=== PATIENT | female | born 1985 | race African-American/Black ===

== ENCOUNTER 2018-01-13 17:59 | Inpatient (IN) | payer MEDICAID ==
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
[2018-01-13 19:24] LABS: HEMATOCRIT 35.9 % (41.0-60); HEMOGLOBIN 11.3 gm/dL (12-16); MEAN CORPUSCULAR HEMOGLOBIN 21.5 pg (27.0-31.0); MEAN CORPUSCULAR HGB CONC 31.5 pg (28.0-36.0); MEAN PLATELET VOLUME 9.2 fl; PLATELET COUNT 439 Th/cmm (150-400); RED BLOOD COUNT 5.28 Mil/cmm (3.80-5.10); RED CELL DISTRIBUTION WIDTH 19.3 % (11.5-20.0); WHITE BLOOD COUNT 11.9 Th/cmm (4.8-10.8)
[2018-01-13 19:25] LABS: % BASOPHILS 0.1 % (0.0-2.0); % LYMPHOCYTES 22.3 % (20.0-50.0); % MONOCYTES 2.1 % (2.0-10.0); % NEUTROPHILS 74.5 % (40.0-80.0); ALBUMIN 3.9 gm/dL (3.7-5.3); ALKALINE PHOSPHATASE 53 U/L (34-104); ANION GAP 14.8 (7.0-16.0); BILIRUBIN,TOTAL 0.3 mg/dL (0.3-1.0); BUN - UREA NITROGEN 14 mg/dL (7-25); CALCIUM SERUM 9.3 mg/dL (8.6-10.3); CARBON DIOXIDE 23.4 mEq/L (21.0-31.0); CHLORIDE 105 mEq/L (98-107); CREATININE - SERUM 0.8 mg/dL (0.6-1.2); EOSINOPHILE ABSOLUTE 0.1 Th/cmm (0.1-0.4); GFR AFRICAN-AMERICAN > 60.0 ml/min (>90); GFR NON AFRICAN-AMERICAN > 60.0 ml/min; GLUCOSE 83 mg/dL (70-105); LYMPHOCYTE ABSOLUTE 2.7 Th/cmm (1.5-3.0); MAGNESIUM 2.4 mg/dL (1.9-2.7); MONOCYTE ABSOLUTE 0.2 Th/cmm (0.3-1.0); NEUTROPHILE ABSOLUTE 8.9 Th/cmm (1.8-8.0); PHOSPHOROUS 3.1 mg/dL (2.5-5.0); POTASSIUM SERUM 4.2 mEq/L (3.5-5.1); SGOT 28 U/L (13-39); SGPT/ALT 10 U/L (7-52); SODIUM SERUM 139 mEq/L (136-145); TOTAL PROTEIN,SERUM 7.7 gm/dL (6.0-8.3)
[2018-01-13 21:42] LABS: URINE SOURCE CLEAN C
[2018-01-13 21:51] LABS: URINE BILIRUBIN NEGATIVE (NEGATIVE); URINE CLARITY CLEAR (CLEAR); URINE COLOR YELLOW; URINE GLUCOSE (UA) NEGATIVE (NEGATIVE); URINE KETONE NEGATIVE (NEGATIVE)
[2018-01-13 21:52] LABS: URINE BLOOD NEGATIVE (NEGATIVE); URINE LEUKOCYTE ESTERASE MODERATE (NEGATIVE); URINE MICROSCOPIC INDICATED? YES; URINE NITRATE NEGATIVE (NEGATIVE); URINE PROTEIN NEGATIVE (NEGATIVE); URINE UROBILINOGEN 0.2 E.U./dL (0.2 - 1.0)
[2018-01-13 21:53] LABS: URINE BACTERIA FEW /hpf (NONE SEEN); URINE EPITHELIAL CELLS FEW /lpf (FEW); URINE RBC 0-2 /hpf (0-5)
[2018-01-13] MEDS ORDERED: Morphine Sulfate 2 mg/mL 1mL Syr IVP PRN (22:15)
[2018-01-14] MEDS: D5-0.45NS 1,000 ML IV SCH ×3 (01:24→23:19)
[2018-01-14] MEDS: cefTRIAXone 1 GM in Sodium Chloride 0.9% 50 ML IV SCH ×2 (02:40→23:17)
[2018-01-14 06:04] LABS: BASOPHILE ABSOLUTE 0.1 Th/cumm (0-0.2); MONOCYTE ABSOLUTE 0.6 Th/cmm (0.3-1.0); RED BLOOD COUNT 4.79 Mil/cmm (3.80-5.10)
[2018-01-14 06:10] LABS: % BASOPHILS 0.9 % (0.0-2.0); % EOSINOPHILS 2.1 % (0.0-5.0); % LYMPHOCYTES 30.9 % (20.0-50.0); % MONOCYTES 7.4 % (2.0-10.0); % NEUTROPHILS 58.7 % (40.0-80.0); EOSINOPHILE ABSOLUTE 0.2 Th/cmm (0.1-0.4); HEMATOCRIT 31.7 % (41.0-60); HEMOGLOBIN 10.4 gm/dL (12-16); LYMPHOCYTE ABSOLUTE 2.3 Th/cmm (1.5-3.0); MEAN CORPUSCULAR HEMOGLOBIN 21.7 pg (27.0-31.0); MEAN CORPUSCULAR HGB CONC 32.8 pg (28.0-36.0); NEUTROPHILE ABSOLUTE 4.4 Th/cmm (1.8-8.0); PLATELET COUNT 372 Th/cmm (150-400); RED CELL DISTRIBUTION WIDTH 18.7 % (11.5-20.0)
[2018-01-14 06:15] LABS: ANION GAP 12.4 (7.0-16.0); BUN - UREA NITROGEN 13 mg/dL (7-25); CARBON DIOXIDE 23.3 mEq/L (21.0-31.0); CHLORIDE 108 mEq/L (98-107); CHOLESTEROL 210 mg/dL (<200); CREATININE - SERUM 0.7 mg/dL (0.6-1.2); GFR AFRICAN-AMERICAN > 60.0 ml/min (>90); GFR NON AFRICAN-AMERICAN > 60.0 ml/min; GLUCOSE 100 mg/dL (70-105); HDL -HIGH DENSITY LIPOPROTEIN 37 mg/dL (23-92); POTASSIUM SERUM 3.7 mEq/L (3.5-5.1); SODIUM SERUM 140 mEq/L (136-145); TRIGLYCERIDES 103 mg/dL (<150)
[2018-01-14 06:22] LABS: WHITE BLOOD COUNT 7.6 Th/cmm (4.8-10.8)
[2018-01-14 06:23] LABS: MEAN CELL VOLUME 66.3 fl (81-100)
--- NOTE | 2018-01-14 08:30 | Diagnostic Imaging Report ---
CT scan of the brain without intravenous contrast HISTORY: Headache, trauma, prior surgery, neoplasm Total DLP equals 606 CTDI equals 35.0 Axial sections were obtained from the base of skull the vertex. Prior exams are not available for comparison. Extensive surgical changes with craniotomy defects noted about the right frontal, temporal, and parietal regions of the skull. There is generalized enlargement of the ventricular system somewhat more pronounced within the right occipital/temporal area. No acute parenchymal abnormalities. No intracerebral hemorrhage. No mass effect or shift of midline structures. No extra-axial masses or abnormal fluid collections. IMPRESSION: 1. Extensive surgical changes along with generalized dilatation of the ventricular system. Findings should be correlated with patient's history and prior studies if needed.
--- NOTE | 2018-01-14 08:33 | Diagnostic Imaging Report ---
CT scan facial bones HISTORY: Pain, trauma Total DLP equals 532 CTDI equals 20.4 Axial sections were obtained through the facial bones. Additional coronal and sagittal reformatted images are provided. There is retention of normal bony margins about the orbits. No fractures. Surgical changes noted about the right zygomatic arch and right temporal and sphenoid region of the skull. Pterygoid plates are intact. No focal abnormalities involve the mandible. Arthritic changes noted about the temporomandibular joints. IMPRESSION: 1. No acute abnormalities 2. Surgical changes as noted above
[2018-01-14] MEDS ORDERED: Influenza Vaccine (5 yr & older) 0.5 ml Syr IM ONE (10:00)
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
--- NOTE | 2018-01-15 11:40 | Internal Medicine Prog Note ---
Internal Medicine Subjective - Subjective Patient seen and examined:: other (c/o nose pain and loose teeth ) Patient is:: awake Patient Complaints of:: other (nose pain ) Per staff patient has:: no adverse event Internal Medicine Objective - Results Result Diagrams: 01/14/18 05:47 01/14/18 05:47 Recent Labs: Laboratory Last Values WBC 7.6 Th/cmm (4.8-10.8) D 01/14/18 05:47 RBC 4.79 Mil/cmm (3.80-5.10) 01/14/18 05:47 Hgb 10.4 gm/dL (12-16) L 01/14/18 05:47 Hct 31.7 % (41.0-60) L 01/14/18 05:47 MCV 66.3 fl (81-100) L 01/14/18 05:47 MCH 21.7 pg (27.0-31.0) L 01/14/18 05:47 MCHC Differential 32.8 pg (28.0-36.0) 01/14/18 05:47 RDW 18.7 % (11.5-20.0) 01/14/18 05:47 Plt Count 372 Th/cmm (150-400) 01/14/18 05:47 MPV 9.0 fl 01/14/18 05:47 Neutrophils % 58.7 % (40.0-80.0) 01/14/18 05:47 Lymphocytes % 30.9 % (20.0-50.0) 01/14/18 05:47 Monocytes % 7.4 % (2.0-10.0) 01/14/18 05:47 Eosinophils % 2.1 % (0.0-5.0) 01/14/18 05:47 Basophils % 0.9 % (0.0-2.0) 01/14/18 05:47 Sodium 140 mEq/L (136-145) 01/14/18 05:47 Potassium 3.7 mEq/L (3.5-5.1) 01/14/18 05:47 Chloride 108 mEq/L (98-107) H 01/14/18 05:47 Carbon Dioxide 23.3 mEq/L (21.0-31.0) 01/14/18 05:47 Anion Gap 12.4 (7.0-16.0) 01/14/18 05:47 BUN 13 mg/dL (7-25) 01/14/18 05:47 Creatinine 0.7 mg/dL (0.6-1.2) 01/14/18 05:47 Est GFR ( Amer) > 60.0 ml/min (>90) 01/14/18 05:47 Est GFR (Non-Af Amer) > 60.0 ml/min 01/14/18 05:47 BUN/Creatinine Ratio 18.6 01/14/18 05:47 Glucose 100 mg/dL (70-105) 01/14/18 05:47 Calcium 9.0 mg/dL (8.6-10.3) 01/14/18 05:47 Phosphorus 3.1 mg/dL (2.5-5.0) 01/13/18 19:00 Magnesium 2.4 mg/dL (1.9-2.7) 01/13/18 19:00 Total Bilirubin 0.3 mg/dL (0.3-1.0) 01/13/18 19:00 AST 28 U/L (13-39) 01/13/18 19:00 ALT 10 U/L (7-52) 01/13/18 19:00 Alkaline Phosphatase 53 U/L (34-104) 01/13/18 19:00 Total Protein 7.7 gm/dL (6.0-8.3) 01/13/18 19:00 Albumin 3.9 gm/dL (3.7-5.3) 01/13/18 19:00 Globulin 3.8 gm/dL 01/13/18 19:00 Albumin/Globulin Ratio 1.0 (1.0-1.8) 01/13/18 19:00 Triglycerides 103 mg/dL (<150) 01/14/18 05:47 Cholesterol 210 mg/dL (<200) H 01/14/18 05:47 LDL Cholesterol Direct 148 mg/dL (75-193) 01/14/18 05:47 HDL Cholesterol 37 mg/dL (23-92) 01/14/18 05:47 TSH 1.21 uIU/ml (0.34-5.60) 01/14/18 05:47 Urine Source CLEAN C 01/13/18 18:35 Urine Color YELLOW 01/13/18 18:35 Urine Clarity CLEAR (CLEAR) 01/13/18 18:35 Urine pH 6.0 (4.6 - 8.0) 01/13/18 18:35 Ur Specific [place] 1.020 (1.005-1.030) 01/13/18 18:35 Urine Protein NEGATIVE mg/dL (NEGATIVE) 01/13/18 18:35 Urine Glucose (UA) NEGATIVE mg/dL (NEGATIVE) 01/13/18 18:35 Urine Ketones NEGATIVE mg/dL (NEGATIVE) 01/13/18 18:35 Urine Blood NEGATIVE (NEGATIVE) 01/13/18 18:35 Urine Nitrate NEGATIVE (NEGATIVE) 01/13/18 18:35 Urine Bilirubin NEGATIVE (NEGATIVE) 01/13/18 18:35 Urine Urobilinogen 0.2 E.U./dL (0.2 - 1.0) 01/13/18 18:35 Ur Leukocyte Esterase MODERATE (NEGATIVE) H 01/13/18 18:35 Urine RBC 0-2 /hpf (0-5) 01/13/18 18:35 Urine WBC 6-10 /hpf (0-5) H 01/13/18 18:35 Ur Epithelial Cells FEW /lpf (FEW) 01/13/18 18:35 Urine Bacteria FEW /hpf (NONE SEEN) 01/13/18 18:35 POC Ur Test Negative 01/13/18 19:23 - Physical Exam Vitals and I&O: Vital Signs Temp 97.2 F 01/15/18 07:43 Pulse 87 01/15/18 07:43 Resp 18 01/15/18 07:43 BP 129/74 01/15/18 07:43 Pulse Ox 99 01/15/18 07:43 Intake & Output 01/14/18 01/15/18 01/15/18 18:59 06:59 18:59 Intake Total 1560.833 645 Balance 1560.833 645 Weight (lbs) 89.358 kg 92.306 kg Intake: Intake, IV Amount 860.833 285 D5-0.45NS 1,000 ml @ 50 860.833 235 mls/hr IV .Q20H MARIA VICTORIA Rx#: [id number] cefTRIAXone 1 gm In 50 Sodium Chloride 0.9% 50 ml @ 100 mls/hr IV Q24HR MARIA VICTORIA Rx#:[id number] Oral 700 360 Other: # Voids 3 3 # Bowel Movements 1 Weight Source Bedscale Bedscale Active Medications: Current Medications Ceftriaxone Sodium 1 gm/ (Sodium Chloride) 50 mls @ 100 mls/hr IV Q24HR COUNTS INCLUDE 234 BEDS AT THE [facility] Stop: 03/14/18 22:59 Last Infusion: 01/14/18 23:47 Dose: Infused Dextrose/Sodium Chloride (D5-0.45ns) 1,000 mls @ 50 mls/hr IV .Q20H MARIA VICTORIA Stop: 03/14/18 22:14 Last Admin: 01/14/18 23:19 Dose: 50 mls/hr Levetiracetam (Keppra) 250 mg PO BID MARIA VICTORIA Stop: 03/16/18 08:59 Last Admin: 01/15/18 09:18 Dose: 250 mg Morphine Sulfate (Morphine) 1 mg IVP Q4HR PRN PRN Reason: MODERATE PAIN Stop: 03/14/18 22:14 Ondansetron HCl (Zofran) 4 mg IV Q6HR PRN PRN Reason: Nausea / Vomiting Stop: 03/14/18 22:15 Risperidone (Risperdal) 2 mg PO DAILY COUNTS INCLUDE 234 BEDS AT THE [facility]; Protocol Stop: 03/16/18 08:59 Valproate Sodium (Depakene) 250 mg PO BID COUNTS INCLUDE 234 BEDS AT THE [facility]; Protocol Stop: 03/16/18 08:59 Last Admin: 01/15/18 09:19 Dose: 250 mg General: alert HEENT: NC/AT Neck: Supple Lungs: CTAB Cardiovascular: Normal S1, Normal S2 Abdomen: soft, non-tender Extremities: clear Neurological: no change Internal Medicine Assmt/Plan - Assessment Assessment: facial cellultiis psychosis h/o craniotomy x 2 for brain tumor - Plan Plan: as per order sheet
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
[2018-01-15] MEDS: cefTRIAXone 1 GM in Sodium Chloride 0.9% 50 ML IV SCH (23:08)
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
[2018-01-16] MEDS: D5-0.45NS 1,000 ML IV SCH (05:01)
--- NOTE | 2018-01-16 11:42 | Internal Medicine Prog Note ---
Internal Medicine Subjective - Subjective Patient seen and examined:: chart reviewed Patient is:: awake Patient Complaints of:: other (some nose pain , in no distress ) Per staff patient has:: no adverse event Internal Medicine Objective - Results Result Diagrams: 01/14/18 05:47 01/14/18 05:47 Recent Labs: Laboratory Last Values WBC 7.6 Th/cmm (4.8-10.8) D 01/14/18 05:47 RBC 4.79 Mil/cmm (3.80-5.10) 01/14/18 05:47 Hgb 10.4 gm/dL (12-16) L 01/14/18 05:47 Hct 31.7 % (41.0-60) L 01/14/18 05:47 MCV 66.3 fl (81-100) L 01/14/18 05:47 MCH 21.7 pg (27.0-31.0) L 01/14/18 05:47 MCHC Differential 32.8 pg (28.0-36.0) 01/14/18 05:47 RDW 18.7 % (11.5-20.0) 01/14/18 05:47 Plt Count 372 Th/cmm (150-400) 01/14/18 05:47 MPV 9.0 fl 01/14/18 05:47 Neutrophils % 58.7 % (40.0-80.0) 01/14/18 05:47 Lymphocytes % 30.9 % (20.0-50.0) 01/14/18 05:47 Monocytes % 7.4 % (2.0-10.0) 01/14/18 05:47 Eosinophils % 2.1 % (0.0-5.0) 01/14/18 05:47 Basophils % 0.9 % (0.0-2.0) 01/14/18 05:47 Sodium 140 mEq/L (136-145) 01/14/18 05:47 Potassium 3.7 mEq/L (3.5-5.1) 01/14/18 05:47 Chloride 108 mEq/L (98-107) H 01/14/18 05:47 Carbon Dioxide 23.3 mEq/L (21.0-31.0) 01/14/18 05:47 Anion Gap 12.4 (7.0-16.0) 01/14/18 05:47 BUN 13 mg/dL (7-25) 01/14/18 05:47 Creatinine 0.7 mg/dL (0.6-1.2) 01/14/18 05:47 Est GFR ( Amer) > 60.0 ml/min (>90) 01/14/18 05:47 Est GFR (Non-Af Amer) > 60.0 ml/min 01/14/18 05:47 BUN/Creatinine Ratio 18.6 01/14/18 05:47 Glucose 100 mg/dL (70-105) 01/14/18 05:47 Calcium 9.0 mg/dL (8.6-10.3) 01/14/18 05:47 Phosphorus 3.1 mg/dL (2.5-5.0) 01/13/18 19:00 Magnesium 2.4 mg/dL (1.9-2.7) 01/13/18 19:00 Total Bilirubin 0.3 mg/dL (0.3-1.0) 01/13/18 19:00 AST 28 U/L (13-39) 01/13/18 19:00 ALT 10 U/L (7-52) 01/13/18 19:00 Alkaline Phosphatase 53 U/L (34-104) 01/13/18 19:00 Total Protein 7.7 gm/dL (6.0-8.3) 01/13/18 19:00 Albumin 3.9 gm/dL (3.7-5.3) 01/13/18 19:00 Globulin 3.8 gm/dL 01/13/18 19:00 Albumin/Globulin Ratio 1.0 (1.0-1.8) 01/13/18 19:00 Triglycerides 103 mg/dL (<150) 01/14/18 05:47 Cholesterol 210 mg/dL (<200) H 01/14/18 05:47 LDL Cholesterol Direct 148 mg/dL (75-193) 01/14/18 05:47 HDL Cholesterol 37 mg/dL (23-92) 01/14/18 05:47 TSH 1.21 uIU/ml (0.34-5.60) 01/14/18 05:47 Urine Source CLEAN C 01/13/18 18:35 Urine Color YELLOW 01/13/18 18:35 Urine Clarity CLEAR (CLEAR) 01/13/18 18:35 Urine pH 6.0 (4.6 - 8.0) 01/13/18 18:35 Ur Specific [place] 1.020 (1.005-1.030) 01/13/18 18:35 Urine Protein NEGATIVE mg/dL (NEGATIVE) 01/13/18 18:35 Urine Glucose (UA) NEGATIVE mg/dL (NEGATIVE) 01/13/18 18:35 Urine Ketones NEGATIVE mg/dL (NEGATIVE) 01/13/18 18:35 Urine Blood NEGATIVE (NEGATIVE) 01/13/18 18:35 Urine Nitrate NEGATIVE (NEGATIVE) 01/13/18 18:35 Urine Bilirubin NEGATIVE (NEGATIVE) 01/13/18 18:35 Urine Urobilinogen 0.2 E.U./dL (0.2 - 1.0) 01/13/18 18:35 Ur Leukocyte Esterase MODERATE (NEGATIVE) H 01/13/18 18:35 Urine RBC 0-2 /hpf (0-5) 01/13/18 18:35 Urine WBC 6-10 /hpf (0-5) H 01/13/18 18:35 Ur Epithelial Cells FEW /lpf (FEW) 01/13/18 18:35 Urine Bacteria FEW /hpf (NONE SEEN) 01/13/18 18:35 POC Ur Test Negative 01/13/18 19:23 - Physical Exam Vitals and I&O: Vital Signs Temp 96.5 F 01/16/18 08:00 Pulse 85 01/16/18 08:00 Resp 18 01/16/18 08:00 BP 114/68 01/16/18 08:00 Pulse Ox 100 01/16/18 08:00 Intake & Output 01/15/18 01/16/18 01/16/18 18:59 06:59 18:59 Intake Total 700 1410 Balance 700 1410 Weight (lbs) 92.306 kg 92.76 kg Intake: Intake, IV Amount 1050 D5-0.45NS 1,000 ml @ 50 1000 mls/hr IV .Q20H [facility] Rx#: [id number] cefTRIAXone 1 gm In 50 Sodium Chloride 0.9% 50 ml @ 100 mls/hr IV Q24HR [facility] Rx#:[id number] Oral 700 360 Other: # Voids 3 3 # Bowel Movements 1 Weight Source Bedscale Bedscale Active Medications: Current Medications Ceftriaxone Sodium 1 gm/ (Sodium Chloride) 50 mls @ 100 mls/hr IV Q24HR [facility] Stop: 03/14/18 22:59 Last Infusion: 01/15/18 23:38 Dose: Infused Dextrose/Sodium Chloride (D5-0.45ns) 1,000 mls @ 50 mls/hr IV .Q20H [facility] Stop: 03/14/18 22:14 Last Admin: 01/16/18 05:01 Dose: 50 mls/hr Levetiracetam (Keppra) 250 mg PO BID [facility] Stop: 03/16/18 08:59 Last Admin: 01/16/18 09:27 Dose: 250 mg Morphine Sulfate (Morphine) 1 mg IVP Q4HR PRN PRN Reason: MODERATE PAIN Stop: 03/14/18 22:14 Ondansetron HCl (Zofran) 4 mg IV Q6HR PRN PRN Reason: Nausea / Vomiting Stop: 03/14/18 22:15 Risperidone (Risperdal) 2 mg PO DAILY [facility]; Protocol Stop: 03/16/18 16:59 Last Admin: 01/16/18 09:27 Dose: 2 mg Valproate Sodium (Depakene) 250 mg PO BID [facility]; Protocol Stop: 03/16/18 08:59 Last Admin: 01/16/18 09:27 Dose: 250 mg General: alert HEENT: NC/AT Neck: Supple Lungs: CTAB Cardiovascular: Normal S1, Normal S2 Abdomen: soft, non-tender Extremities: clear Neurological: no change Internal Medicine Assmt/Plan - Assessment Assessment: facial cellultiis psychosis h/o craniotomy x 2 for brain tumor - Plan Plan: as per order sheet
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
== END 2018-01-16 14:30 | disposition home or self-care (01) | DRG 383 ==
LOC: ER 17:59 → MSI 21:20
PROVIDERS: ADMIT Internal Medicine; ATTEND Internal Medicine
DX: L03.211 Cellulitis of face (principal); F29 Unspecified psychosis not due to a substance or known physiological condition; F39 Unspecified mood [affective] disorder; Y04.0XXA Assault by unarmed brawl or fight, initial encounter; Y93.89 Activity, other specified; Y92.89 Other specified places as the place of occurrence of the external cause; Y99.8 Other external cause status; Z85.841 Personal history of malignant neoplasm of brain; Z79.899 Other long term (current) drug therapy
CPT/HCPCS: 36415-UA; 70450-TC; 70486-TC; 80048-TC; 80053-TC; 80061-TC; 81001-TC; 81025-TC; 83735-TC; 84100-TC; 84443-TC; 85025-TC; J0696; Z7610